=== PATIENT | female | born 1975 | race African-American/Black ===

== ENCOUNTER 2018-03-30 12:24 | Emergency (ER) | payer MEDICAID ==
[~2018-03-30] VITALS: Ht 165.1 cm; Wt 73.0 kg
[2018-03-30] MEDS ORDERED: IBUPROFEN 600MG TABLET PO ONE (15:15)
[2018-03-30 15:44] VITALS: BP 140/89
== END 2018-03-30 15:46 | disposition home or self-care (01) ==
LOC: ER 13:13
DX: K08.89 Other specified disorders of teeth and supporting structures (principal); R51 Headache; F41.9 Anxiety disorder, unspecified
CPT/HCPCS: 99283

== ENCOUNTER 2018-04-03 21:15 | Emergency (ER) | payer MEDICAID ==
[2018-04-03 21:36] VITALS: BP 117/75
== END 2018-04-03 21:20 | disposition left against medical advice (07) ==
LOC: ER 21:15
DX: Z53.21 Procedure and treatment not carried out due to patient leaving prior to being seen by health care provider (principal)

== ENCOUNTER 2018-06-10 20:15 | Emergency (ER) | payer MEDICAID ==
[~2018-06-10] VITALS: Ht 170.2 cm; Wt 77.0 kg
[2018-06-10 23:21] VITALS: BP 120/76
== END 2018-06-10 23:22 | disposition home or self-care (01) ==
LOC: ER 20:15
DX: J02.9 Acute pharyngitis, unspecified (principal); Z88.3 Allergy status to other anti-infective agents; Z88.0 Allergy status to penicillin
CPT/HCPCS: 87070; 87430; 99283

== ENCOUNTER 2023-12-05 03:21 | Emergency (ER) | payer MEDICAID ==
[~2023-12-05] VITALS: Ht 170.2 cm; Wt 82.0 kg
[2023-12-05 03:31] VITALS: BP 155/87; PULSE 88; RESP 18; TEMP 98.3; O2SAT 95; O2SAT 99
== END 2023-12-05 08:01 | disposition left against medical advice (07) ==
LOC: ER 05:15
DX: R51.9 Headache, unspecified (principal); Z53.21 Procedure and treatment not carried out due to patient leaving prior to being seen by health care provider